=== PATIENT | female | born 1975 | race Caucasian/White ===

== ENCOUNTER → 2016-05-21 | Outpatient (CLI) | payer MEDICAID ==
--- NOTE | 2016-05-21 16:48 | CR ---
EXAMINATION: Right ankle HISTORY: Injury COMPARISON: None TECHNIQUE: 3 views FINDINGS/IMPRESSION: There is no acute osseous abnormality, dislocation, or fracture identified. Mod erate soft tissue swelling is noted overlying the lateral malleolus. The ankle mortise, bone mineral ization, and talar dome appear preserved.
[2016-05-26 16:03] LABS: HPV 16 Not Detected (NOTDET); HPV 18 Not Detected (NOTDET)
== END ==
LOC: MW.CHFP 14:09
PROVIDERS: ATTEND Nurse Practitioner Family
DX: Z00.00 Encounter for general adult medical examination without abnormal findings (principal); S99.911A Unspecified injury of right ankle, initial encounter
CPT/HCPCS: 73610-26-RT; 73610-RT; 81001; 87624; G0145

== ENCOUNTER → 2016-05-24 | Outpatient (CLI) | payer MEDICAID ==
--- NOTE | 2016-05-29 17:38 | MY ---
EXAMINATION: Bilateral digital mammography utilizing CAD. HISTORY: Screening exam. Comparison is made to previous studies dated Baseline. FINDINGS: Bilateral scattered fibroglandular densities. No suspicious calcifications, masses or ar chitectural distortions. No pathologic appearing lymph nodes, no abnormal skin thickening or nippl e inversion. CAD highlighted regions appear normal at this time. IMPRESSION: BI-RADS category I - negative mammogram. Continued screening according to ACR-ACS gu idelines suggested. THE FALSE-NEGATIVE RATE OF MAMMOGRAM IS APPROXIMATELY 10%. MANAGEMENT OF A PALPABLE ABNORMALITY MUST BE BASED UPON CLINICAL GROUNDS. SENSITIVITY FOR DETECTION OF ABNORMALITIES IN DENSE BREASTS IS LOW. NOTE: A letter will be sent to the patient regarding findings. [facility] [place] [phone] - FAX [phone]
== END ==
LOC: MW.MAM 13:57
PROVIDERS: ATTEND Nurse Practitioner Family
DX: Z12.31 Encounter for screening mammogram for malignant neoplasm of breast (principal)
CPT/HCPCS: G0202; G0202-26

== ENCOUNTER → 2016-06-04 | Outpatient (CLI) | payer MEDICAID ==
[2016-06-04 13:19] LABS: CHLORIDE,CL 108 mmol/L (98-110); SODIUM,NA 140 mmol/L (136-146)
== END | disposition home or self-care (01) ==
LOC: MW.CHFP 12:38
PROVIDERS: ATTEND Nurse Practitioner Family
DX: I10 Essential (primary) hypertension (principal); R53.83 Other fatigue
CPT/HCPCS: 36415; 80053; 80061; 84443; 85027

== ENCOUNTER 2017-08-31 16:34 | Emergency (ER) | payer MEDICAID ==
[2017-08-31] MEDS ORDERED: Aspirin 81 MG Tab.Chew PO ONE (17:21)
[2017-08-31] MEDS: Nitroglycerin 0.4 MG Tab.SL SL PRN ×3 (17:49→18:00)
--- NOTE | 2017-08-31 17:54 | EDM.PDOC ---
ED HPI GENERAL MEDICAL PROBLEM - General Chief Complaint: Chest Pain Stated Complaint: CHEST PAIN Time Seen by Provider: 08/31/17 17:20 Source of Information: Reports: Patient History Limitations: Reports: No Limitations - History of Present Illness INITIAL COMMENTS - FREE TEXT/NARRATIVE: HISTORY AND PHYSICAL: History of present illness: Patient is a 41-year-old female who presents to the emergency room today with complaints of chest pain and shortness of breath upon exertion. She has no previous history of heart disease or respiratory illness. Denies any fever, chills, cough, diaphoresis or headache. She denies any abdominal pain, nausea, vomiting, diarrhea or constipation. Review of systems: As per history of present illness and below otherwise all systems reviewed and negative. Past medical history: As per history of present illness and as reviewed below otherwise noncontributory. Surgical history: As per history of present illness and as reviewed below otherwise noncontributory. Social history: No reported history of drug or alcohol abuse. Family history: As per history of present illness and as reviewed below otherwise noncontributory. Physical exam: General: Developed and well-nourished 41-year-old female. Alert and oriented. Nontoxic appearing and in no acute distress. HEENT: Atraumatic, normocephalic, pupils equal and reactive bilaterally, negative for conjunctival pallor or scleral icterus, mucous membranes moist, throat clear, neck supple, nontender, trachea midline. No drooling or trismus noted. No meningeal signs Lungs: Clear to auscultation, breath sounds equal bilaterally, chest nontender. Heart: S1S2, regular rate and rhythm without overt murmur Abdomen: Soft, nondistended, nontender. Negative for masses or hepatosplenomegaly. Negative for costovertebral tenderness. Pelvis: Stable nontender. Genitourinary: Deferred. Rectal: Deferred. Skin: Intact, warm, dry. No lesions or rashes noted. Extremities: Atraumatic, negative for cords or calf pain. Neurovascular unremarkable. Neuro: Awake, alert, oriented. Cranial nerves II through XII unremarkable. Cerebellum unremarkable. Motor and sensory unremarkable throughout. Exam nonfocal. Notes: Lab work is unremarkable. EKG shows normal sinus rhythm with a rate of 81. No acute findings. Chest x-ray shows no acute disease, infiltrate or pneumonia. Blood pressure did lower with nitro; normal saline bolus was given. Patient states she continues to have pain after the nitroglycerin. We'll give her Toradol and a Medrol, I do feel that there is some respiratory component to her discomfort. Repeat EKG was completed; no acute findings. Patient feels improved after her IV medications. I shared with her the diagnostic findings. I offered her admission at this time. Since we are at capacity at our facility this would require a transfer. She declines and would like to be discharged home. We discussed signs and symptoms that would prompt her to return to the emergency room. She voices understanding and is agreeable to plan of care. She denies any further questions at this time. Diagnostics: CBC, CMP, troponin, EKG, chest x-ray Therapeutics: Aspirin, nitroglycerin, normal saline Impression: Chest pain, nonspecific Plan: 1. Please start an 81 mg aspirin once daily. 2. Follow-up with your primary care provider in the next 1-2 days. Return to the ED as needed and as discussed. Definitive disposition and diagnosis as appropriate pending reevaluation and review of above. 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: Musculoskeletal History: Reports: None Neurological History: Reports: None Psychiatric History: Reports: None Endocrine/Metabolic History: Reports: None Hematologic History: Reports: None Immunologic History: Reports: None Oncologic (Cancer) History: Reports: None Dermatologic History: Reports: None - Infectious Disease History Infectious Disease History: Reports: None Social & Family History - Family History Family Medical History: Noncontributory - Tobacco Use Smoking Status *Q: Never Smoker - Caffeine Use Caffeine Use: Reports: Soda, Tea - Recreational Drug Use Recreational Drug Use: No ED ROS GENERAL - Review of Systems Review Of Systems: ROS reveals no pertinent complaints other than HPI. ED EXAM, GENERAL - Physical Exam Exam: See Below (See dictation) Course - Vital Signs Last Recorded V/S: Last Vital Signs Temp 97.7 F 08/31/17 16:35 Pulse 81 08/31/17 19:24 Resp 16 08/31/17 19:24 BP 108/68 08/31/17 19:24 Pulse Ox 98 08/31/17 19:24 - Orders/Labs/Meds Orders: Active Orders 24 hr Category Date Time Status EKG Documentation Completion [RC] STAT Care 08/31/17 16:53 Active EKG Documentation Completion [RC] STAT Care 08/31/17 18:27 Active Chest 1V Frontal [CR] Stat Exams 08/31/17 16:53 Taken Labs: Laboratory Tests 08/31/17 08/31/17 Range/Units 17:11 17:11 WBC 8.84 (4.0-11.0) K/uL RBC 4.63 (4.30-5.90) M/uL Hgb 13.7 (12.0-16.0) g/dL Hct 39.4 (36.0-46.0) % MCV 85.1 (80.0-98.0) fL MCH 29.6 (27.0-32.0) pg MCHC 34.8 (31.0-37.0) g/dL RDW Std Deviation 37.6 (28.0-62.0) fl RDW Coeff of Sarah 12 (11.0-15.0) % Plt Count 248 (150-400) K/uL MPV 10.10 (7.40-12.00) fL Neut % (Auto) 66.6 (48.0-80.0) % Lymph % (Auto) 23.6 (16.0-40.0) % [place] % (Auto) 7.9 (0.0-15.0) % Eos % (Auto) 1.6 (0.0-7.0) % Baso % (Auto) 0.3 (0.0-1.5) % Neut # (Auto) 5.9 H (1.4-5.7) K/uL Lymph # (Auto) 2.1 (0.6-2.4) K/uL [place] # (Auto) 0.7 (0.0-0.8) K/uL Eos # (Auto) 0.1 (0.0-0.7) K/uL Baso # (Auto) 0.0 (0.0-0.1) K/uL Nucleated RBC % 0.0 /100WBC Nucleated RBCs # 0 K/uL Sodium 138 (136-145) mmol/L Potassium 3.7 (3.5-5.1) mmol/L Chloride 100 (98-107) mmol/L Carbon Dioxide 31.8 (21.0-32.0) mmol/L BUN 13 (7.0-18.0) mg/dL Creatinine 1.0 (0.6-1.0) mg/dL Est Cr Clr Drug Dosing 70.54 mL/min Estimated GFR (MDRD) > 60.0 ml/min Glucose 166 H (74-106) mg/dL Calcium 9.0 (8.5-10.1) mg/dL Total Bilirubin 0.5 (0.2-1.0) mg/dL AST 19 (15-37) IU/L ALT 30 (14-63) IU/L Alkaline Phosphatase 50 (46-116) U/L Troponin I < 0.050 (0.000-0.056) ng/mL Total Protein 7.3 (6.4-8.2) g/dL Albumin 3.7 (3.4-5.0) g/dL Globulin 3.6 H (2.0-3.5) g/dL Albumin/Globulin Ratio 1.0 L (1.3-2.8) Meds: Medications Discontinued Medications Generic Name Dose Route Start Last Admin Trade Name Freq PRN Reason Stop Dose Admin Aspirin 324 mg 08/31/17 17:21 08/31/17 17:48 Aspirin PO 08/31/17 17:22 324 mg ONETIME ONE Administration Sodium Chloride 1,000 mls @ 999 mls/hr 08/31/17 18:12 08/31/17 18:13 Normal Saline IV 08/31/17 19:12 999 mls/hr .Bolus ONE Administration Ketorolac Tromethamine 30 mg 08/31/17 18:27 08/31/17 19:01 Toradol IVPUSH 08/31/17 18:28 30 mg ONETIME ONE Administration Methylprednisolone Sodium Succinate 125 mg 08/31/17 18:55 08/31/17 19:03 Solu-Medrol IVPUSH 08/31/17 18:56 125 mg ONETIME ONE Administration Nitroglycerin 0.4 mg 08/31/17 17:21 08/31/17 18:00 Nitrostat SL 0.4 mg Q5M PRN Administration Chest Pain Departure - Departure Time of Disposition: 19:01 Disposition: Home, Self-Care 01 Clinical Impression: Nonspecific chest pain Instructions: Nonspecific Chest Pain, [id number] Referrals: PCP,None [Primary Care Provider] - Forms: ED Department Discharge Additional Instructions: The following information is given to patients seen in the emergency department who are being discharged to home. This information is to outline your options for follow-up care. We provide all patients seen in our emergency department with a follow-up referral. The need for follow-up, as well as the timing and circumstances, are variable depending upon the specifics of your emergency department visit. If you don't have a primary care physician on staff, we will provide you with a referral. We always advise you to contact your personal physician following an emergency department visit to inform them of the circumstance of the visit and for follow-up with them and/or the need for any referrals to a consulting specialist. The emergency department will also refer you to a specialist when appropriate. This referral assures that you have the opportunity for follow-up care with a specialist. All of these measure are taken in an effort to provide you with optimal care, which includes your follow-up. Under all circumstances we always encourage you to contact your private physician who remains a resource for coordinating your care. When calling for follow-up care, please make the office aware that this follow-up is from your recent emergency room visit. If for any reason you are refused follow-up, please contact the [facility] Emergency Department at and asked to speak to the emergency department charge nurse. [facility] [address] [place] [phone] 1. Please start an 81 mg aspirin once daily. 2. Follow-up with your primary care provider in the next 1-2 days. Return to the ED as needed and as discussed. - My Orders Last 24 Hours: My Active Orders 08/31/17 16:53 EKG Documentation Completion [RC] STAT Chest 1V Frontal [CR] Stat 08/31/17 18:27 EKG Documentation Completion [RC] STAT - Assessment/Plan Last 24 Hours: My Active Orders 08/31/17 16:53 EKG Documentation Completion [RC] STAT Chest 1V Frontal [CR] Stat 08/31/17 18:27 EKG Documentation Completion [RC] STAT
[2017-08-31 17:59] LABS: CHLORIDE,CL 100 mmol/L (98-107); SODIUM,NA 138 mmol/L (136-145)
[2017-08-31] MEDS ORDERED: Sodium Chloride 0.9% 1,000 ML IV ONE (18:12)
[2017-08-31] MEDS ORDERED: Ketorolac 30 MG/ML SDV IVPUSH ONE (18:27)
[2017-08-31] MEDS ORDERED: methylPREDNISolone Sodium Succinate 125 MG/2 ML SDV IVPUSH ONE (18:55)
[2017-08-31 19:25] VITALS: BP 108/68
--- NOTE | 2017-09-02 14:11 | CR ---
EXAM DATE: 08/31/17 PATIENT'S AGE: 41 Patient: NITO GLOIRA Facility: [place], [place] Site . Site : 1975 Study: XRay Chest [id number]/16/2018 5:23:08 PM Ordering Physician: Doctor Morse Final Report: HISTORY: Chest pain. TECHNIQUE: One view of the chest. COMPARISON: No prior. FINDINGS: Cardiac size within normal limits. There is no acute lung infiltrate or pulmonary edema. No pneumothorax or pleural effusion. No acute bony abnormality. Mild rightward curvature of the thoracic spine. IMPRESSION: No acute disease. Dictated by Kong Christianson MD @ 08/31/2017 5:29:37 PM Dictated by: Kong Christianson MD @ 08/31/2017 17:29:42 (Electronic Signature) Report Signed by Proxy. [email or web address]
== END 2017-08-31 19:26 | disposition home or self-care (01) ==
LOC: MW.ED 16:34
DX: R07.9 Chest pain, unspecified (principal); I10 Essential (primary) hypertension; Z79.899 Other long term (current) drug therapy
CPT/HCPCS: 36415; 71045; 80053; 84484; 85025; 93005; 96374; 96375; 99285; A9270; J1885; J2930; J7040

== ENCOUNTER 2017-11-01 08:17 | Day surgery (SDC) | payer MEDICAID ==
[~2017-11-01 08:17] MED LIST: Benzocaine 20% Topical Spray UD MUCMEM ONE; Lactated Ringers 1,000 ML IV SCH; Lidocaine 2% 5 ML SDV ONE; Midazolam 1 MG/ML 2 ML SDV ONE; Propofol 200 MG/20 ML SDV ONE
--- NOTE | 2017-11-01 08:40 | PCM.PREANE ---
Preanesthetic Assessment - Anesthesia/Transfusion/Family Hx Anesthesia History: Prior Anesthesia Without Reaction Family History of Anesthesia Reaction: No Transfusion History: No Prior Transfusion(s) Intubation History: Unknown - Review of Systems General: No Symptoms Pulmonary: No Symptoms Cardiovascular: No Symptoms Gastrointestinal: No Symptoms Neurological: No Symptoms Other: Reports: None - Physical Assessment NPO Status Date: 10/31/17 NPO Status Time: 23:00 (.) O2 Sat by Pulse Oximetry: 96 Respiratory Rate: 14 Vital Signs: Last Vital Signs Temp 97.5 F 11/01/17 08:31 Pulse 86 11/01/17 08:31 Resp 14 11/01/17 08:31 BP 155/112 H 11/01/17 08:31 Pulse Ox 96 11/01/17 08:31 Height: 5 ft 7 in Weight: 113.852 kg ASA Class: 2 Mental Status: Alert & Oriented x3 Airway Class: Mallampati = 2 Dentition: Reports: Normal Dentition Thyro-Mental Finger Breadths: 3 Mouth Opening Finger Breadths: 3 ROM/Head Extension: Full Lungs: Clear to Auscultation, Normal Respiratory Effort Cardiovascular: Regular Rate, Regular Rhythm - Allergies Allergies/Adverse Reactions: Allergies Allergy/AdvReac Type Severity Reaction Status Date / Time No Known Allergies Allergy Verified 10/29/17 13:43 - Acknowledgements Anesthesia Type Planned: MAC Pt an Appropriate Candidate for the Planned Anesthesia: Yes Alternatives and Risks of Anesthesia Discussed w Pt/Guardian: Yes Pt/Guardian Understands and Agrees with Anesthesia Plan: Yes PreAnesthesia Questionnaire HEENT History: Reports: Other (See Below) Other HEENT History: wears glasses Cardiovascular History: Reports: Hypertension Respiratory History: Reports: None Gastrointestinal History: Reports: GERD Genitourinary History: Reports: None 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: Musculoskeletal History: Reports: None Neurological History: Reports: Concussion, Other (See Below) Other Neuro History: hx of motion sickness Psychiatric History: Reports: None Endocrine/Metabolic History: Reports: Obesity/BMI 30+ Hematologic History: Reports: None Immunologic History: Reports: None Oncologic (Cancer) History: Reports: None Dermatologic History: Reports: None - Infectious Disease History Infectious Disease History: Reports: None - Past Surgical History HEENT Surgical History: Reports: Oral Surgery Other HEENT Surgeries/Procedures: wisdom teeth - SUBSTANCE USE Smoking Status *Q: Never Smoker Recreational Drug Use History: No - HOME MEDS Home Medications: Home Meds Lisinopril/Hydrochlorothiazide [Lisinopril-Hctz 20-25 mg Tab] 1 each PO DAILY [History] Pantoprazole Sodium 40 mg PO ACBREAKFAST 10/29/17 [History] - CURRENT (IN HOUSE) MEDS Current Meds: Current Medications Lactated Ringer's (Ringers, Lactated) 1,000 mls @ 125 mls/hr IV ASDIRECTED JOSH Discontinued Medications Benzocaine (Hurricaine One 20%) Confirm Administered Dose 1 each MUCMEM .STK- MED ONE Stop: 11/01/17 07:27 Benzocaine (Hurricaine One 20%) Confirm Administered Dose 1 each MUCMEM .STK- MED ONE Stop: 11/01/17 07:42 Lidocaine (Xylocaine-Mpf 2%) Confirm Administered Dose 5 ml .ROUTE .STK-MED ONE Stop: 11/01/17 07:26 Midazolam HCl (Versed 1 Mg/Ml) Confirm Administered Dose 2 mg .ROUTE .STK-MED ONE Stop: 11/01/17 07:26 Propofol (Diprivan 20 Ml) Confirm Administered Dose 200 mg .ROUTE .STK-MED ONE Stop: 11/01/17 07:25
--- NOTE | 2017-11-01 10:54 | PCM.OPNOTE ---
- General Post-Op/Procedure Note Date of Surgery/Procedure: 11/01/17 Operative Procedure(s): egd w bx Findings: see dict [id number] Pre Op Diagnosis: epigastric pain Post-Op Diagnosis: Same Anesthesia Technique: Moderate Sedation Primary Surgeon: All Rico Pathology: egd bx Complications: None Condition: Good
--- NOTE | 2017-11-01 11:02 | PCM.POSTAN ---
POST ANESTHESIA ASSESSMENT - MENTAL STATUS Mental Status: Alert, Oriented - RESPIRATORY Respiratory Status: Respiratory Rate WNL, Airway Patent, O2 Saturation Stable - CARDIOVASCULAR CV Status: Pulse Rate WNL, Blood Pressure Stable - GASTROINTESTINAL GI Status: No Symptoms - POST OP HYDRATION Hydration Status: Adequate & Stable
--- NOTE | 2017-11-01 11:21 | PCM48HPAN ---
Post Anesthesia Note - EVALUATION WITHIN 48HRS OF ANESTHETIC Vital Signs in Normal Range: Yes Patient Participated in Evaluation: Yes Respiratory Function Stable: Yes Airway Patent: Yes Cardiovascular Function Stable: Yes Hydration Status Stable: Yes Pain Control Satisfactory: Yes Nausea and Vomiting Control Satisfactory: Yes Mental Status Recovered: Yes Resp Rate: 20
[2017-11-01 11:30] VITALS: BP 165/98
--- NOTE | 2017-11-01 14:03 | OR ---
SURGEON: All Rico MD DATE OF PROCEDURE: 11/01/2017 PREOPERATIVE DIAGNOSIS: Epigastric pain. POSTOPERATIVE DIAGNOSIS: Gastroesophageal reflux disease. PROCEDURE PERFORMED: Esophagogastroduodenoscopy. PROCEDURE IN DETAIL: EGD: The patient was taken to the endoscopy room, and with the ARABIC TRANSLATOR, Diprivan was administered. A well-lubricated EGD scope was gently inserted through the oropharynx, down the esophagus, passing through the gastroesophageal junction, into the stomach. The mucosa was examined upon the passage. Any etiology will be noted. Once in the stomach, we continued to advance to the distal antrum, passed through the pylorus into the second portion of the duodenum. Again, the mucosa was examined for any abnormality and etiology. The scope was then retrieved back to the stomach and then retroflexed to look at the fundus of the stomach. If a biopsy was indicated, we will biopsy the antrum, body, and gastroesophageal junction. The air will be sucked out while the scope is retrieved to reduce the patient's discomfort. The patient tolerated the procedure well. There were no intraoperative complications. Dr. Rico was present through the whole procedure. Prior to surgery, a time-out had been called, the patient identified, procedure identified and antibiotic administered. FINDINGS: 1. The patient is easily sedated with ARABIC TRANSLATOR and Diprivan. The patient is soundly snoring. 2. Proximal esophagus is free of disease and no inflammation stricture. Distal to the esophagus at GE junction at 35 shows a frame-like salmon- color change consistent with [id number] acid reflux. Stomach rugae is normal in appearance. Antrum was a little bit inflamed. Duodenum was grossly normal. Scope retrieved back to the stomach. Retroflexed look at the fundus of stomach. There was a mild hiatal hernia, and biopsy done at antrum, body, GE junction, and sucked out the gas while scope pulling out. The patient does not have food, bile, blood, or ulcer observed. The patient has [id number] acid reflux. TERRA / MACHO /[id number]
== END 2017-11-01 11:38 | disposition home or self-care (01) ==
LOC: MW.SDS 08:17
PROVIDERS: ATTEND Surgery
DX: K20.9 Esophagitis, unspecified (principal); K21.9 Gastro-esophageal reflux disease without esophagitis; R07.9 Chest pain, unspecified; I10 Essential (primary) hypertension; Z79.899 Other long term (current) drug therapy
CPT/HCPCS: 43239; 81025; A9270; J2250; J2704; J7120; 88305; 88312